=== PATIENT | female | born 1995 | race Caucasian/White ===

== ENCOUNTER 2017-06-26 16:08 | Emergency (ER) | payer MEDICAID, OTHER ==
[2017-06-26 16:31] VITALS: BP 171/98
--- NOTE | 2017-06-26 16:50 | EDM.PDOC ---
ED HPI GENERAL MEDICAL PROBLEM - General Chief Complaint: Skin Complaint Stated Complaint: R FOOT POSS INFECTION Time Seen by Provider: 06/26/17 16:15 Source of Information: Reports: Patient History Limitations: Reports: No Limitations - History of Present Illness INITIAL COMMENTS - FREE TEXT/NARRATIVE: The patient presents with a right great toe infection. She went to the walk in clinic 2 weeks ago and she was put on bactrim for 7 days and it went away for 3 days and then it came back. She also has diabetes type II and she is out of her diabetes meds. She was on invokana and she thinks glipizide. She denies fever, chills, cough, chest, pain, abdominal pain, nausea or vomiting. Onset: Gradual Duration: Day(s): Location: Reports: Upper Extremity, Right (Great toe) Quality: Reports: Sharp Severity: Moderate Improves with: Reports: None Worsens with: Reports: None Context: Reports: Activity Associated Symptoms: Reports: No Other Symptoms Right 1-Hallux Pain Score (Numeric/FACES): 7 - Related Data Allergies Allergy/AdvReac Type Severity Reaction Status Date / Time No Known Allergies Allergy Verified 06/26/17 16:31 Home Meds: Home Meds Gabapentin [Neurontin] 300 mg PO BID 07/11/15 [History] metFORMIN HCl [Metformin HCl] 1,000 mg PO BID 07/11/15 [History] Gabapentin [Neurontin] 300 mg PO BID #60 cap 01/10/16 [Rx] metFORMIN [Glucophage XR] 1,000 mg PO BIDMEALS #60 tab.er 01/10/16 [Rx] metFORMIN [Glucophage] 500 mg PO BIDMEALS #6 tablet 01/10/16 [Rx] Doxycycline [Vibramycin] 100 mg PO Q12HR #20 cap 06/26/17 [Rx] glipiZIDE [Glipizide ER] 10 mg PO DAILY #30 tab.er.24 06/26/17 [Rx] Past Medical History HEENT History: Reports: Impaired 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: Polycystic Ovaries Endocrine/Metabolic History: Reports: Diabetes, Type II - Past Surgical History GI Surgical History: Reports: Cholecystectomy Social & Family History - Family History Family Medical History: Noncontributory - Tobacco Use Smoking Status *Q: Never Smoker Second Hand Smoke Exposure: No - Recreational Drug Use Recreational Drug Use: No ED ROS GENERAL - Review of Systems Review Of Systems: See Below Constitutional: Reports: No Symptoms HEENT: Reports: No Symptoms Respiratory: Reports: No Symptoms Cardiovascular: Reports: No Symptoms Endocrine: Reports: No Symptoms GI/Abdominal: Reports: No Symptoms : Reports: No Symptoms Musculoskeletal: Reports: Other (Right great toe redness) ED EXAM, SKIN/RASH Exam: See Below Exam Limited By: No Limitations General Appearance: Alert, No Apparent Distress Ears: Normal External Exam Nose: Normal Inspection Head: Atraumatic, Normocephalic Neck: Normal Inspection Respiratory/Chest: No Respiratory Distress, Lungs Clear, Normal Breath Sounds Cardiovascular: No Edema, No Murmur, Tachycardia GI/Abdominal: Soft, Non-Tender, No Organomegaly, No Mass Back Exam: Normal Inspection Extremities: Other (Erythema and edema to the base of the nail of the right great toe. Good sensation distally.) Course - Vital Signs Last Recorded V/S: Last Vital Signs Temp 98.4 F 06/26/17 16:26 Pulse 120 H 06/26/17 16:26 Resp 27 H 06/26/17 16:26 BP 171/98 H 06/26/17 16:26 Pulse Ox 98 06/26/17 16:26 - Orders/Labs/Meds Labs: Laboratory Tests 06/26/17 Range/Units 16:45 POC Glucose 244 H (70-105) mg/dL - Re-Assessments/Exams Free Text/Narrative Re-Assessment/Exam: 06/26/17 16:57 I will start her on some doxycycline and get her on some glipizide. I will start her on 5mg and have her increase after a few days. Her blood sugar was 244 here. 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 Take the doxycycline 2 times per day until gone. Soak your toe in warm soapy water 2 times per day and apply antibiotics after. Follow up with your doctor as scheduled. Please return if you are worse.
[2017-06-26] MEDS ORDERED: Fluconazole 150 MG Tab PO ONE (17:07)
== END 2017-06-26 17:25 | disposition home or self-care (01) ==
LOC: JD.ED 16:08
DX: L03.031 Cellulitis of right toe (principal); E11.9 Type 2 diabetes mellitus without complications; Z90.49 Acquired absence of other specified parts of digestive tract; Z79.84 Long term (current) use of oral hypoglycemic drugs
CPT/HCPCS: 82962; 99283; A9270